=== PATIENT | female | born 1965 | race Two or more races ===

== ENCOUNTER 2018-09-24 13:40 | Outpatient (CLI) | payer OTHER | END 2018-09-24 14:23 | disposition home or self-care (01) | LOC: RAD 501 13:40 | DX: M25.561 Pain in right knee (principal); M25.562 Pain in left knee ==

== ENCOUNTER 2018-10-24 12:59 | Outpatient (CLI) | payer OTHER | END 2018-10-24 13:01 | disposition home or self-care (01) | LOC: SONOGRAMA 12:59 | DX: N60.11 Diffuse cystic mastopathy of right breast (principal); N60.12 Diffuse cystic mastopathy of left breast; N63.21 Unspecified lump in the left breast, upper outer quadrant ==

== ENCOUNTER 2019-01-02 06:30 | Day surgery (SDC) | payer OTHER ==
[~2019-01-02 06:30] MED LIST: FEMARA2.5 MG PO; LOSARTAN-HCTZ1 EACH PO; SYNTHROID125 MCG PO
== END 2019-01-02 22:00 | disposition home or self-care (01) ==
LOC: CIR.AMB 06:30
PROVIDERS: Plastic Surgery; Surgery
PROC: 0HBV0ZZ Excision of Bilateral Breast, Open Approach (ICD-10-PCS; 2019-01-02)
PROC: 0HBU0ZZ Excision of Left Breast, Open Approach (ICD-10-PCS; principal; 2019-01-02 05:15)
PROC: 07B60ZZ Excision of Left Axillary Lymphatic, Open Approach (ICD-10-PCS; 2019-01-02 05:15)
DX: C50.412 Malignant neoplasm of upper-outer quadrant of left female breast (principal); N62 Hypertrophy of breast